=== PATIENT | female | born 1970 ===

== ENCOUNTER 2023-06-21 09:00 | Inpatient (IN) | payer OTHER ==
[~2023-06-21] VITALS: Ht 152.4 cm; Wt 74.4 kg
[2023-06-21] MEDS ORDERED: PAXIL40 MG PO (09:53)
[2023-06-21] MEDS ORDERED: CLONAZEPAM1 MG PO (09:54)
[2023-06-21] MEDS ORDERED: RESTORIL30 M1 PO (09:54)
[2023-06-21] MEDS ORDERED: CRESTOR20 MG PO (09:55)
[2023-06-28] MEDS ORDERED: NEURONTIN300 MG PO (07:58)
[2023-06-28] MEDS ORDERED: PERCOCET 5-3251 EACH PO (07:58)
[2023-06-28] MEDS ORDERED: INTESTINEX680 M1 PO (07:59)
== END 2023-06-28 12:23 | disposition home or self-care (01) | DRG 748 ==
LOC: O/R 06-27 06:59 → SURG 06-27 09:15
PROVIDERS: ADMIT Surgery; ATTEND Surgery
PROC: 3E0T3BZ Introduction of Anesthetic Agent into Peripheral Nerves and Plexi, Percutaneous Approach (ICD-10-PCS; 2023-06-27)
PROC: 0JQC0ZZ Repair Pelvic Region Subcutaneous Tissue and Fascia, Open Approach (ICD-10-PCS; principal; 2023-06-27 17:00)
DX: N81.6 Rectocele (principal); Z20.822 Contact with and (suspected) exposure to COVID-19